=== PATIENT | female | born 1960 | race Caucasian/White ===

== ENCOUNTER 2024-04-19 10:27 | Inpatient (IN) | payer OTHER ==
[2024-04-19] MEDS ORDERED: Calcium Carbonate 500 MG ChewTAB PO PRN (13:58)
[2024-04-19] MEDS ORDERED: Morphine 2 MG/ML VIAL SLOW IVP PRN (13:58)
[2024-04-19] MEDS ORDERED: Senokot S 8.6-50 MG TAB PO PRN (13:58)
[2024-04-19] MEDS ORDERED: Acetaminophen 325 MG TAB PO PRN (13:58)
[2024-04-19] MEDS ORDERED: Ondansetron ODT 4 MG TAB PO PRN (13:58)
[2024-04-19] MEDS ORDERED: Ondansetron PF 4 MG/2 ML Vial IVP PRN (13:58)
[2024-04-19 14:19] VITALS: BMI 23.4
[2024-04-19] MEDS: NS 0.9% w/ 20 MEQ KCL 1,000 ML/1,000 ML BAG IV SCH (15:34)
[2024-04-19] MEDS: Ketorolac Tromethamine 30 MG (1 mL) VIAL IVP SCH (15:34)
[2024-04-19] MEDS ORDERED: cloNIDine 0.1 MG TAB PO PRN (15:34)
[2024-04-19] MEDS: Ciprofloxacin Lactate/D5W 400 MG in Premix 1 BAG IVPB SCH (15:35)
[2024-04-19] MEDS: FLU (Fluarix Triv) TS24-25(6MOS UP)/PF 45 MCG/0.5 ML Syringe IM ONE (16:37)
[2024-04-19] MEDS ORDERED: Famotidine/PF 20 mg/2ml Vial ONE (17:07)
[2024-04-19] MEDS ORDERED: Rocuronium Bromide 10 MG/ML (10ML VIAL) ONE (17:10)
[2024-04-19] MEDS ORDERED: fentaNYL 50 mcg/mL 1 mL Vial ONE (17:10)
[2024-04-19] MEDS ORDERED: PROPOFOL 20 ML ONE (17:10)
[2024-04-19] MEDS ORDERED: Lidocaine 2% PF 5 ML VIAL ONE (17:10)
[2024-04-19] MEDS ORDERED: Iopamidol 0 ML ONE (17:22)
[2024-04-19] MEDS ORDERED: SUGAMMADEX SODIUM 200 MG/2 ML VIAL ONE (17:44)
[2024-04-19] MEDS ORDERED: Dexamethasone 4 mg/ml Vial ONE (17:44)
[2024-04-19] MEDS ORDERED: Ondansetron PF 4 MG/2 ML Vial ONE (17:44)
[2024-04-19] MEDS ORDERED: Ondansetron HCl/PF 4 MG/2 ML Vial IVP PRN (17:51)
[2024-04-19] MEDS ORDERED: Promethazine HCl 25 MG/ML VIAL IM PRN (17:51)
[2024-04-19] MEDS: Magnesium 2 GM/50 ML(in water) 2 GM in Premix 1 BAG IVPB SCH (17:54)
[2024-04-19] MEDS: Famotidine 20 MG TAB PO SCH (21:50)
[2024-04-19] MEDS: Gabapentin 300 MG CAP PO SCH (21:50)
[2024-04-19] MEDS: Tamsulosin HCl 0.4 MG CAP PO SCH (21:51)
[2024-04-20 04:24] LABS: #Basophils Less than 0.03 10x3/uL (0.0-0.2); #Eosinphils Less than 0.03 10x3/uL (0.0-0.7); %Basophils 0.1 % (0.0-1.0); %Lymphocytes 7.2 % (21.0-51.0); %Monocytes 1.9 % (0.0-10.0); %Neutrophils 90.5 % (42.0-75.0); Hematocrit 34.8 % (36.0-47.0); Hemoglobin 11.1 g/dL (12.0-16.0); Mean Corpuscular HGB CONC 31.9 g/dL (32.0-36.0); Mean Corpuscular Hemoglobin 29.1 pg (27.0-31.0); Mean Corpuscular Volume 91.1 fL (78.0-98.0); Mean Platelet Volume 12.1 fL (7.4-10.4); Platelet Count 206 10x3/uL (130-400); RBC Distribution Width 14.5 % (11.5-14.5); Red Blood Cell (RBC) Count 3.82 mill/uL (4.20-5.40)
[2024-04-20 05:00] LABS: ALT (SGPT) 24 U/L (8-55); AST (SGOT) 21 U/L (5-34); Albumin 2.9 g/dL (3.4-4.8); Alkaline Phosphatase 66 U/L (40-110); Anion Gap 10 mmol/L (10-20); BUN (Urea Nitrogen) 9 mg/dL (9.8-20.1); Bilirubin, Total 0.3 mg/dL (0.2-1.2); Calc. Creatinine Clearance 79 mL/min (70-130); Calcium 8.8 mg/dL (7.8-10.44); Carbon Dioxide 17 mmol/L (23-31); Chloride 114 mmol/L (98-107); Estimated GFR 100; Globulin 2.8 g/dL (2.4-3.5); Glucose 188 mg/dL (80-115); Magnesium 2.2 mg/dL (1.6-2.6); Phosphorus 2.1 mg/dL (2.3-4.7); Potassium 3.9 mmol/L (3.5-5.1); Protein, Total 5.7 g/dL (5.8-8.1); Sodium 137 mmol/L (136-145)
[2024-04-20] MEDS: Aspirin 81 mg Enteric Coated Tablet PO SCH (09:36)
[2024-04-20] MEDS: Gabapentin 300 MG CAP PO SCH (09:36)
[2024-04-20] MEDS: Polyethylene Glycol 3350 17 GM Packet PO SCH (09:55)
[2024-04-20 11:30] VITALS: BP 129/85; TEMP 98.1
[2024-04-21] MEDS ORDERED: Polyethylene Glycol 3350 17 GM Packet PO SCH (09:00)
== END 2024-04-20 14:03 | disposition home or self-care (01) | DRG 854 ==
LOC: SURG B 13:42
PROVIDERS: ADMIT Internal Medicine; ATTEND Internal Medicine
PROC: 3E03329 Introduction of Other Anti-infective into Peripheral Vein, Percutaneous Approach (ICD-10-PCS; principal; 2024-04-19)
PROC: 0T768DZ Dilation of Right Ureter with Intraluminal Device, Via Natural or Artificial Opening Endoscopic (ICD-10-PCS; 2024-04-19)
PROC: BT1D1ZZ Fluoroscopy of Right Kidney, Ureter and Bladder using Low Osmolar Contrast (ICD-10-PCS; 2024-04-19)
DX: A41.9 Sepsis, unspecified organism (principal); N13.6 Pyonephrosis; E87.6 Hypokalemia; E83.42 Hypomagnesemia; I10 Essential (primary) hypertension; E78.5 Hyperlipidemia, unspecified; N20.0 Calculus of kidney; Z88.0 Allergy status to penicillin; Z79.899 Other long term (current) drug therapy; Z86.73 Personal history of transient ischemic attack (TIA), and cerebral infarction without residual deficits; F41.9 Anxiety disorder, unspecified; Z98.51 Tubal ligation status; Z90.89 Acquired absence of other organs; Z79.82 Long term (current) use of aspirin
CPT/HCPCS: 36415; 74420; 80053; 83735; 84100; 85025; C2617; J0744; J1100; J1885; J2001; J2405; J2704; J3010; J3480; J3490; Q9967

== ENCOUNTER 2024-05-07 14:34 | Day surgery (SDC) | payer OTHER ==
[2024-05-07] MEDS ORDERED: Iopamidol 0 ML ONE (17:26)
[2024-05-07] MEDS ORDERED: fentaNYL PF 100 MCG/2 ML SYRINGE ONE (17:33)
[2024-05-07] MEDS ORDERED: Lidocaine 1% PF 5 ML VIAL ONE (17:34)
[2024-05-07] MEDS ORDERED: PROPOFOL 20 ML ONE (17:34)
[2024-05-07] MEDS ORDERED: LevoFLOXacin D5W 500 mg (100 mL) BAG ONE (17:35)
[2024-05-07] MEDS ORDERED: PHENYLEPHRINE-NS 100 MCG/ML 10 ML SYRINGE ONE (18:06)
[2024-05-07] MEDS ORDERED: Ondansetron PF 4 MG/2 ML Vial ONE (18:55)
[2024-05-07] MEDS ORDERED: Dexamethasone 4 mg/ml Vial ONE (18:55)
[2024-05-07] MEDS ORDERED: Morphine 4 MG/ML VIAL ONE (19:21)
[2024-05-07] MEDS ORDERED: fentaNYL 50 mcg/mL 1 mL Vial ONE (20:10)
== END 2024-05-07 21:10 | disposition home or self-care (01) ==
LOC: SDC 14:34
PROVIDERS: ATTEND Urology
PROC: 0TC08ZZ Extirpation of Matter from Right Kidney, Via Natural or Artificial Opening Endoscopic (ICD-10-PCS; principal; 2024-05-07)
DX: N20.0 Calculus of kidney (principal); I10 Essential (primary) hypertension; F32.A Depression, unspecified; Z90.89 Acquired absence of other organs; Z96.22 Myringotomy tube(s) status; Z98.51 Tubal ligation status; Z88.0 Allergy status to penicillin; Z91.012 Allergy to eggs; Z91.011 Allergy to milk products; Z79.82 Long term (current) use of aspirin; Z79.51 Long term (current) use of inhaled steroids; Z79.899 Other long term (current) drug therapy
CPT/HCPCS: 74420; C1713; C2617; J1100; J1956; J2272; J2405; J2704; J3010; Q9967